=== PATIENT | female | born 1970 | race Caucasian/White ===

== ENCOUNTER 2017-02-22 17:33 | Outpatient (CLI) | payer SELFPAY ==
[2017-02-22 18:06] LABS: Clarity Slightly Cloudy (Clear)
[2017-02-22 18:08] LABS: Glucose, Urine (Dipstick) 250 mg/dL (Negative); Leukocyte Unable to Interpret (Negative); Nitrite Unable to Interpret (Negative); Protein, Urine (Dipstick) Unable to Interpret mg/dL (Neg-Trace); Specific Gravity, Urine 1.034 (1.002-1.036)
[2017-02-22 18:10] LABS: Urobilinogen UNABLE TO INTERPRET mg/dL (0.2-1.0)
[2017-02-22 18:11] LABS: Bilirubin Unable to Interpret (Negative); Blood, Urine Negative (Negative); Icto Unable to Interpret (Negative); RBC/HPF 0-3 HPF (0-3); WBC/HPF 21-50 HPF (0-3)
[2017-02-22 18:12] LABS: Bacteria/HPF 1+ HPF (None Seen)
== END 2017-02-22 17:34 | disposition home or self-care (01) ==
LOC: MADLAB 17:33
PROVIDERS: ATTEND Family Medicine
DX: N39.0 Urinary tract infection, site not specified (principal)
CPT/HCPCS: 81001; 87086

== ENCOUNTER 2017-06-10 22:24 | Emergency (ER) | payer SELFPAY ==
[~2017-06-10 22:24] MED LIST: Donnatal Elixir 16.2 MG/5 ML UDCUP ONE
[2017-06-10] MEDS ORDERED: diphenhydrAMINE 50 MG/ML VIAL ONE (23:24)
[2017-06-10] MEDS ORDERED: Diazepam 5 MG TAB ONE (23:24)
[2017-06-10] MEDS ORDERED: Ondansetron HCl/PF 4 MG/2 ML Vial ONE (23:24)
[2017-06-11] MEDS ORDERED: Nitroglycerin 0.4 MG TAB 1 EACH ONE (00:29)
[2017-06-11] MEDS ORDERED: Mag-Al Plus 1200 MG/1200 MG/120 MG/30 ML UDCUP ONE (00:51)
[2017-06-11] MEDS ORDERED: Donnatal Elixir 16.2 MG/5 ML UDCUP ONE (00:51)
[2017-06-11] MEDS ORDERED: Lidocaine Viscous Sol 2% 15 ml UD Cup ONE (00:51)
--- NOTE | 2017-06-11 07:16 | CT ---
LUMBAR SPINE CT WITHOUT CONTRAST: Date: 06/10/17 HISTORY: Low back pain. COMPARISON: None. TECHNIQUE: Noncontrast lumbar spine CT is performed in the axial plane. Reformatted images are submitted for in terpretation. FINDINGS: Metallic shrapnel in the left hemiabdomen is suspected. Surgical clips due to previous cholecystecto my noted. Visualized solid organs and alimentary canal are unremarkable. Bilaterally, no evidence of obstructive uropathy. Symmetric attenuation of psoas muscles. There are five lumbar-type vertebral bodies. Vertebral body height is maintained. No fracture. No sp ondylolisthesis. No spondylolysis. Evaluation of the contents of the central spinal canal and neural foramina limited by technique. T11-T12 and T12-L1: No high grade central canal stenosis or high grade foraminal narrowing. L1-L2: No high grade central canal stenosis or high grade foraminal narrowing. L2-L3: Minimal generalized disc bulge with a small focus of calcification along the posterior aspect of the disc. Minimal central canal stenosis. Neural foramina are patent bilaterally. L3-L4: Mild loss of disc space height. There is a generalized disc bulge with a small left subarticular com ponent. There is some narrowing of the left subarticular zone. Overall, mild central canal stenosis. Foramina are patent bilaterally. L4-L5: Mild loss of disc space height. Generalized disc bulge. Mild central canal stenosis. There is mild n arrowing of the left and right subarticular zones. Ligamentum flavum thickening is noted. Mild to mo derate left foraminal narrowing. L5-S1: No significant central canal stenosis. Neural foramina are patent. IMPRESSION: Degenerative disc disease at L3-L4 and L4-L5 as detailed above. Better interrogation with MRI of the lumbar spine is recommended. POS: TRIPP
== END 2017-06-11 03:17 | disposition home or self-care (01) ==
LOC: MADERS 22:24
DX: M54.41 Lumbago with sciatica, right side (principal); G51.0 Bell's palsy; F17.210 Nicotine dependence, cigarettes, uncomplicated; Z79.899 Other long term (current) drug therapy
CPT/HCPCS: 72131; 96374; 96375; J1170; J1200; J2405

== ENCOUNTER 2017-06-18 13:49 | Emergency (ER) | payer SELFPAY ==
[2017-06-18] MEDS ORDERED: Ondansetron ODT 4 MG TAB ONE (14:05)
[2017-06-18] MEDS ORDERED: Ketorolac Tromethamine 60 MG/2 ML VIAL ONE (14:05)
[2017-06-18] MEDS ORDERED: HYDROcodone/Acetaminophen 10/325 mg Tablet ONE (14:05)
== END 2017-06-18 15:30 | disposition home or self-care (01) ==
LOC: MADERS 13:49
DX: K02.9 Dental caries, unspecified (principal)
CPT/HCPCS: 96372; J1885; Q0162

== ENCOUNTER 2017-06-23 10:52 | Emergency (ER) | payer SELFPAY ==
[2017-06-23] MEDS ORDERED: Cyclobenzaprine 10 MG TAB ONE (11:52)
[2017-06-23] MEDS ORDERED: Acetaminophen 500 MG TAB ONE (11:52)
[2017-06-23] MEDS ORDERED: diphenhydrAMINE 25 MG CAP ONE (11:52)
[2017-06-23] MEDS ORDERED: Ketorolac Tromethamine 60 MG/2 ML VIAL ONE (11:52)
== END 2017-06-23 12:25 | disposition home or self-care (01) ==
LOC: MADERS 10:52
DX: M54.5 Low back pain (principal); F17.210 Nicotine dependence, cigarettes, uncomplicated; Z79.899 Other long term (current) drug therapy
CPT/HCPCS: 96372; J1885

== ENCOUNTER 2018-12-27 16:22 | Emergency (ER) | payer SELFPAY | END 2018-12-27 16:33 | disposition left against medical advice (07) | LOC: MADERS 16:22 | DX: Z53.21 Procedure and treatment not carried out due to patient leaving prior to being seen by health care provider (principal) ==

== ENCOUNTER 2020-07-19 15:49 | Emergency (ER) | payer MEDICARE ==
--- NOTE | 2020-07-19 16:36 | RAD ---
EXAM: XR Ankle Rt 3 View STANDARD PROVIDED CLINICAL HISTORY: Pain status post injury COMPARISON: None FINDINGS: There is subtle cortical irregularity involving the lateral margin of the distal fibula, compatible w ith nondisplaced Walsh A fracture. No additional fracture is evident. Alignment appears anatomic. Joint spaces appear preserved. IMPRESSION: Nondisplaced Walsh A distal fibular fracture.
== END 2020-07-19 17:00 | disposition home or self-care (01) ==
LOC: MADERS 15:49
DX: S82.831A Other fracture of upper and lower end of right fibula, initial encounter for closed fracture (principal); Z71.6 Tobacco abuse counseling; G62.9 Polyneuropathy, unspecified; I10 Essential (primary) hypertension; F17.210 Nicotine dependence, cigarettes, uncomplicated; Z79.899 Other long term (current) drug therapy; Z79.891 Long term (current) use of opiate analgesic; W01.0XXA Fall on same level from slipping, tripping and stumbling without subsequent striking against object, initial encounter
CPT/HCPCS: 27786; 99406

== ENCOUNTER 2020-07-24 20:16 | Emergency (ER) | payer MEDICARE ==
[2020-07-24] MEDS ORDERED: HYDROcodone/Acetaminophen 5/325 mg Tablet ONE (20:37)
[2020-07-24] MEDS ORDERED: Clindamycin 150 MG CAP ONE (20:38)
[2020-07-24] MEDS ORDERED: Ibuprofen 800 MG TAB ONE (20:38)
== END 2020-07-24 20:45 | disposition home or self-care (01) ==
LOC: MADERS 20:16
DX: K04.7 Periapical abscess without sinus (principal); K02.9 Dental caries, unspecified; I10 Essential (primary) hypertension; F17.210 Nicotine dependence, cigarettes, uncomplicated; G62.9 Polyneuropathy, unspecified; Z79.899 Other long term (current) drug therapy
CPT/HCPCS: 99283

== ENCOUNTER 2020-07-31 11:51 | Emergency (ER) | payer MEDICARE | END 2020-07-31 12:50 | disposition home or self-care (01) | LOC: MADERS 11:51 | DX: M79.89 Other specified soft tissue disorders (principal); S82.831D Other fracture of upper and lower end of right fibula, subsequent encounter for closed fracture with routine healing; G62.9 Polyneuropathy, unspecified; I10 Essential (primary) hypertension; F17.210 Nicotine dependence, cigarettes, uncomplicated; Z79.899 Other long term (current) drug therapy | CPT/HCPCS: 99283 ==

== ENCOUNTER 2020-09-05 18:18 | Emergency (ER) | payer MEDICARE ==
[2020-09-05] MEDS ORDERED: Sodium Chloride 0.9% 1,000 ML ONE (19:25)
[2020-09-05] MEDS ORDERED: diphenhydrAMINE 50 MG/ML VIAL ONE (19:25)
[2020-09-05 19:32] LABS: #Basophils 0.2 thou/uL (0.0-0.2); #Eosinphils 0.1 thou/uL (0.0-0.7); #Lymphocytes 3.6 thou/uL (1.20-3.40); #Monocytes 1.5 thou/uL (0.11-0.59); #Neutrophils 12.4 thou/uL (1.40-6.50); %Basophils 0.9 % (0.0-1.0); %Eosinophils 0.6 % (0.0-10.0); %Lymphocytes 20.4 % (21.0-51.0); %Monocytes 8.2 % (0.0-10.0); Hemoglobin 15.6 g/dL (12.0-16.0); Mean Corpuscular HGB CONC 32.5 g/dL (32.0-36.0); Mean Corpuscular Hemoglobin 29.4 pg (27.0-31.0); Mean Corpuscular Volume 90.4 fL (78.0-98.0); Mean Platelet Volume 7.8 fL (7.4-10.4); Platelet Count 460 thou/uL (130-400); RBC Distribution Width 11.7 % (11.5-14.5); Red Blood Cell (RBC) Count 5.31 mill/uL (4.20-5.40); White Blood Cell (WBC) Count 17.7 thou/uL (4.8-10.8)
--- NOTE | 2020-09-05 19:33 | RAD ---
RADIOGRAPH CHEST 1 VIEW: DATE: 09/05/2020 TIME: 7:33 PM HISTORY: 50-year-old female status post syncope. Concern for aspiration. COMPARISON: 11/24/2011 FINDINGS: New finding of faint, mild interstitial or groundglass densities in the bilateral mid and lower lung zones. No consolidation. Cardiomediastinal silhouette is within normal limits. Lateral costophrenic angles are sharp. No pneumothorax. IMPRESSION: 1) no consolidation. 2) faint, mild pulmonary densities. This is nonspecific, but recommend correlation with COVID 19 test ing
[2020-09-05] MEDS ORDERED: Ketorolac Tromethamine 30 MG/ML VIAL ONE (19:45)
[2020-09-05] MEDS ORDERED: Cyclobenzaprine 10 MG TAB ONE (19:45)
[2020-09-05 19:47] LABS: ALT (SGPT) 15 U/L (8-55); AST (SGOT) 13 U/L (5-34); Acetaminophen Less than 6.0 mcg/mL (10.0-30.0); Alcohol Less than 10 mg/dL (Less than 10); Alkaline Phosphatase 104 U/L (40-110); Anion Gap 15 mmol/L (10-20); BUN (Urea Nitrogen) 11 mg/dL (9.8-20.1); Bilirubin, Total 0.2 mg/dL (0.2-1.2); Calc. Creatinine Clearance 0 mL/min (70-130); Calcium 9.6 mg/dL (7.8-10.44); Carbon Dioxide 27 mmol/L (22-29); Chloride 101 mmol/L (98-107); Globulin 3.8 g/dL (2.4-3.5); Glucose 114 mg/dL (70-105); Lipase 29 U/L (8-78); Magnesium 2.1 mg/dL (1.6-2.6); Potassium 4.4 mmol/L (3.5-5.1); Protein, Total 7.8 g/dL (6.0-8.3); Salicylate Less than 8.0 mg/dL (15.0-30.0); Sodium 139 mmol/L (136-145)
[2020-09-05 20:30] LABS: Bilirubin Small (Negative); Blood, Urine Trace (Negative); Clarity Slightly Cloudy (Clear); Glucose, Urine (Dipstick) Negative (Negative); Ketone, Urine Negative (Negative); Leukocyte Small (Negative); Nitrite Negative (Negative); Protein, Urine (Dipstick) 100 mg/dL (Neg-Trace); Urobilinogen 0.2 mg/dL (Less than 2)
[2020-09-05 20:43] LABS: Specific Gravity, Urine 1.025 (1.002-1.036)
[2020-09-05 20:44] LABS: Bacteria/HPF 3+ HPF (None Seen); Mucous/LPF 1+ LPF (<2+); RBC/HPF 0-3 HPF (0-3); WBC/HPF 21-50 HPF (0-3)
[2020-09-05 20:47] LABS: Amphetamine Not Detected (NotDetected); Barbiturates Screen Not Detected (NotDetected); Benzodiazepine Screen Detected (NotDetected); Cocaine Metabolite Screen Not Detected (NotDetected); Medtox Control Line Valid? VALID (VALID); Methadone Not Detected (NotDetected); Methamphetamine Not Detected (NotDetected); Opiate Screen Not Detected (NotDetected); Oxycodone Screen Not Detected (NotDetected); Phencyclidine (PCP) Not Detected (NotDetected); THC/Cannabinoid Screen Detected (NotDetected); Tricyclic Screen Detected (NotDetected)
[2020-09-05] MEDS ORDERED: cefTRIAXone\\ROCEPHIN 1 GM VIAL ONE (21:32)
[2020-09-05] MEDS ORDERED: Diazepam 5 MG TAB ONE (21:32)
[2020-09-05] MEDS ORDERED: Sterile Water 10 ML ONE (21:32)
[2020-09-06 14:24] LABS: SARS-CoV-2 PCR by NAA Not Detected (NotDetected)
== END 2020-09-05 22:07 | disposition home or self-care (01) ==
LOC: MADERS 18:18
DX: G25.81 Restless legs syndrome (principal); F11.20 Opioid dependence, uncomplicated; N39.0 Urinary tract infection, site not specified; I10 Essential (primary) hypertension; F17.210 Nicotine dependence, cigarettes, uncomplicated; Z79.899 Other long term (current) drug therapy
CPT/HCPCS: 36415; 71045; 80053; 80306; 80307; 81003; 81015; 83690; 83735; 84484; 85025; 87077; 87086; 87186; 87635; 93005; 96374; 96375; J0696; J1200; J1885; J7050; U0003; U0005

== ENCOUNTER 2022-03-12 09:23 | Emergency (ER) | payer MEDICARE, OTHER ==
[2022-03-12] MEDS ORDERED: Ondansetron ODT 4 MG TAB ONE (09:58)
[2022-03-12] MEDS ORDERED: Morphine 10 MG/ML VIAL ONE (09:58)
== END 2022-03-12 10:19 | disposition home or self-care (01) ==
LOC: MADERS 09:23
DX: M54.50 Low back pain, unspecified (principal); H60.501 Unspecified acute noninfective otitis externa, right ear; I10 Essential (primary) hypertension; K21.9 Gastro-esophageal reflux disease without esophagitis; M79.7 Fibromyalgia; M19.90 Unspecified osteoarthritis, unspecified site; G62.9 Polyneuropathy, unspecified; F17.210 Nicotine dependence, cigarettes, uncomplicated
CPT/HCPCS: J2270; Q0162

== ENCOUNTER 2022-03-13 09:26 | Emergency (ER) | payer OTHER | END 2022-03-13 10:47 | disposition home or self-care (01) | LOC: MADERS 09:26 | DX: H60.91 Unspecified otitis externa, right ear (principal); K21.9 Gastro-esophageal reflux disease without esophagitis; I10 Essential (primary) hypertension; M19.90 Unspecified osteoarthritis, unspecified site; M79.7 Fibromyalgia; G62.9 Polyneuropathy, unspecified; F17.210 Nicotine dependence, cigarettes, uncomplicated; G51.0 Bell's palsy; Z20.822 Contact with and (suspected) exposure to COVID-19; M54.50 Low back pain, unspecified; H60.501 Unspecified acute noninfective otitis externa, right ear; G92.9 Unspecified toxic encephalopathy | CPT/HCPCS: 96372; 99283; J2270; Q0162; U0003; U0005 ==

== ENCOUNTER 2022-04-17 23:29 | Emergency (ER) | payer MEDICARE, OTHER ==
[2022-04-17] MEDS ORDERED: NEOMYCIN-POLYMYXIN-HC EAR SUSP 200 DROP/10 ML BOT ONE (23:57)
[2022-04-17] MEDS ORDERED: Ketorolac Tromethamine 60 MG/2 ML VIAL ONE (23:57)
== END 2022-04-18 00:38 | disposition home or self-care (01) ==
LOC: MADERS 23:29
DX: H66.91 Otitis media, unspecified, right ear (principal); H72.91 Unspecified perforation of tympanic membrane, right ear; K21.9 Gastro-esophageal reflux disease without esophagitis; I10 Essential (primary) hypertension; M79.7 Fibromyalgia; M19.90 Unspecified osteoarthritis, unspecified site; G62.9 Polyneuropathy, unspecified; F17.210 Nicotine dependence, cigarettes, uncomplicated; G51.0 Bell's palsy; Z79.899 Other long term (current) drug therapy
CPT/HCPCS: 96372; 99282; J1885

== ENCOUNTER 2023-04-06 17:37 | Emergency (ER) | payer OTHER ==
[2023-04-06] MEDS ORDERED: Clindamycin 150 MG CAP ONE (18:44)
== END 2023-04-06 18:45 | disposition home or self-care (01) ==
LOC: MADERS 17:37
DX: L02.415 Cutaneous abscess of right lower limb (principal); K21.9 Gastro-esophageal reflux disease without esophagitis; I10 Essential (primary) hypertension; F17.210 Nicotine dependence, cigarettes, uncomplicated; Z79.899 Other long term (current) drug therapy
CPT/HCPCS: 87070; 87077; 87186; 87205; 99283